=== PATIENT | female | born 1990 | race African-American/Black ===

== ENCOUNTER → 2020-11-25 | Outpatient (CLI) | payer OTHER | END | disposition home or self-care (01) | LOC: LAB 12:16 | PROVIDERS: ATTEND Obstetrics & Gynecology | DX: N91.2 Amenorrhea, unspecified (principal) ==

== ENCOUNTER → 2021-01-11 | Outpatient (CLI) | payer OTHER ==
[2021-01-11 18:00] LABS: BASO % 0.5 % (0.0-1.0); EOS # 0.2 10*3/uL (0.0-0.4); HEMATOCRIT 38.4 % (37.0-47.0); LYMPH # 2.7 10*3/uL (1.3-4.4); LYMPH % 35.4 % (27.0-41.0); MEAN CELL VOLUME 93.2 fl (81.0-99.0); MEAN CORPUSCULAR HGB 29.4 pg (27.0-31.0); MEAN CORPUSCULAR HGB CONC 31.5 g/dl (33.0-37.0); MEAN PLATELET VOLUME 9.1 fl (9.6-12.3); MONO # 0.6 10*3/uL (0.1-1.0); MONO % 7.3 % (3.0-9.0); NEUT % 53.4 % (47.0-73.0); PLATELET COUNT AUTOMATED 286 10*3/uL (130-400); RED BLOOD COUNT 4.12 10*6/uL (4.10-5.10); RED CELL DISTRI WIDTH 14.6 % (0-14.5); WHITE BLOOD COUNT 7.6 10*3/uL (4.8-10.8)
[2021-01-11 18:26] LABS: IRON 57 ug/dL (50-170); TOTAL IRON BINDING CAPACITY 391 ug/dl (250-450)
[2021-01-11 18:51] LABS: FERRITIN 32.7 ng/mL (10.0-291.0)
[2021-01-12 05:06] LABS: HEPATITIS B SURFACE AG Negative (Negative)
[2021-01-13 16:08] LABS: HCV RT-PCR RFX HCV Not Detected IU/mL (.)
== END | disposition home or self-care (01) ==
LOC: LAB 17:29
PROVIDERS: Nurse Practitioner Family; ATTEND Advanced Practice Midwife
DX: Z11.51 Encounter for screening for human papillomavirus (HPV) (principal); Z12.4 Encounter for screening for malignant neoplasm of cervix; D64.9 Anemia, unspecified

== ENCOUNTER → 2021-02-22 | Outpatient (CLI) | payer OTHER | END | disposition home or self-care (01) | LOC: US 16:47 | PROVIDERS: ATTEND Advanced Practice Midwife | DX: Z34.02 Encounter for supervision of normal first pregnancy, second trimester (principal); Z3A.19 19 weeks gestation of pregnancy ==

== ENCOUNTER → 2021-04-30 | Outpatient (CLI) | payer OTHER | END | disposition home or self-care (01) | LOC: LAB 09:49 | PROVIDERS: ATTEND Obstetrics & Gynecology | DX: Z36.9 Encounter for antenatal screening, unspecified (principal) ==

== ENCOUNTER → 2021-05-14 | Outpatient (CLI) | payer OTHER ==
[2021-05-14 09:02] LABS: BASO % 0.5 % (0.0-1.0); EOS # 0.2 10*3/uL (0.0-0.4); EOS % 2.5 % (1.0-4.0); HEMATOCRIT 37.2 % (37.0-47.0); LYMPH # 2.1 10*3/uL (1.3-4.4); LYMPH % 34.9 % (27.0-41.0); MEAN CELL VOLUME 91.4 fl (81.0-99.0); MEAN CORPUSCULAR HGB 28.7 pg (27.0-31.0); MEAN CORPUSCULAR HGB CONC 31.5 g/dl (33.0-37.0); MEAN PLATELET VOLUME 9.7 fl (9.6-12.3); MONO # 0.5 10*3/uL (0.1-1.0); MONO % 8.7 % (3.0-9.0); NEUT # 3.2 10*3/uL (2.3-7.9); NEUT % 53.1 % (47.0-73.0); PLATELET COUNT AUTOMATED 297 10*3/uL (130-400); RED BLOOD COUNT 4.07 10*6/uL (4.10-5.10); RED CELL DISTRI WIDTH 14.6 % (0-14.5); WHITE BLOOD COUNT 6.1 10*3/uL (4.8-10.8)
== END | disposition home or self-care (01) ==
LOC: LAB 08:35
PROVIDERS: ATTEND Obstetrics & Gynecology
DX: Z34.83 Encounter for supervision of other normal pregnancy, third trimester (principal); Z3A.29 29 weeks gestation of pregnancy

== ENCOUNTER → 2021-06-30 | Outpatient (CLI) | payer OTHER ==
[2021-06-30 18:51] LABS: BASO % 0.3 % (0.0-1.0); EOS # 0.2 10*3/uL (0.0-0.4); EOS % 1.9 % (1.0-4.0); HEMATOCRIT 37.3 % (37.0-47.0); LYMPH # 2.5 10*3/uL (1.3-4.4); LYMPH % 31.4 % (27.0-41.0); MEAN CELL VOLUME 88.4 fl (81.0-99.0); MEAN CORPUSCULAR HGB 27.7 pg (27.0-31.0); MEAN CORPUSCULAR HGB CONC 31.4 g/dl (33.0-37.0); MEAN PLATELET VOLUME 9.8 fl (9.6-12.3); MONO % 11.9 % (3.0-9.0); NEUT # 4.3 10*3/uL (2.3-7.9); NEUT % 54.1 % (47.0-73.0); PLATELET COUNT AUTOMATED 280 10*3/uL (130-400); RED BLOOD COUNT 4.22 10*6/uL (4.10-5.10); RED CELL DISTRI WIDTH 16.2 % (0-14.5)
[2021-06-30 19:16] LABS: BUN 8 mg/dl (7-24); CREATININE 0.54 mg/dL (0.55-1.02); SGOT/AST 17 IU/L (3-35); SGPT/ALT 20 U/L (12-78)
== END | disposition home or self-care (01) ==
LOC: LAB 18:19
PROVIDERS: ATTEND Obstetrics & Gynecology
DX: Z34.03 Encounter for supervision of normal first pregnancy, third trimester (principal); Z3A.37 37 weeks gestation of pregnancy

== ENCOUNTER 2021-07-21 07:35 | Emergency (ER) | payer OTHER ==
[~2021-07-21] VITALS: Wt 70.3 kg
[2021-07-21] MEDS ORDERED: NAPROXEN250 MG PO (08:19)
[2021-07-21] MEDS ORDERED: HYDROCODONE-AC1 EAC1 PO ×2 (08:19→08:22)
[2021-07-21] MEDS ORDERED: TYLENOL325 M1 PO (08:19)
[2021-07-21 08:51] LABS: BILIRUBIN Negative (Negative); BLOOD 3+ (Negative); CLARITY Clear (Clear); COLOR Yellow (Yellow); GLUCOSE Negative (Negative); KETONE Negative (Negative); LEUKO ESTERASE 3+ (Negative); NITRITE Negative (Negative); PH 6.5 (4.5-8.0); SPECIFIC GRAVITY 1.015 (1.001-1.030); UROBILINOGEN 0.2 E.U./dl (0.0-1.0)
[2021-07-21 09:09] LABS: RBC TNTC rbc/hpf (0-2)
[2021-07-21 09:10] LABS: BACTERIA 2+; WBC 21-30 wbc/hpf (0-5)
== END 2021-07-21 08:29 | disposition home or self-care (01) ==
LOC: ED 07:35
PROVIDERS: Emergency Medicine
DX: O90.89 Other complications of the puerperium, not elsewhere classified (principal); G89.18 Other acute postprocedural pain

== ENCOUNTER 2021-07-30 07:08 | Emergency (ER) | payer OTHER ==
[~2021-07-30] VITALS: Ht 157.4 cm; Wt 66.2 kg
[~2021-07-30 07:08] MED LIST: HYDROCODONE-AC1 EAC1 PO; NAPROXEN250 MG PO; TYLENOL325 M1 PO
[2021-07-30] MEDS ORDERED: PRENATAL ONE D1 EACH PO (07:26)
[2021-07-30 07:56] LABS: BASO # 0.1 10*3/uL (0.0-0.1); BASO % 1.2 % (0.0-1.0); EOS # 0.3 10*3/uL (0.0-0.4); EOS % 4.5 % (1.0-4.0); HEMATOCRIT 40.9 % (37.0-47.0); LYMPH # 2.6 10*3/uL (1.3-4.4); LYMPH % 42.8 % (27.0-41.0); MEAN CELL VOLUME 89.1 fl (81.0-99.0); MEAN CORPUSCULAR HGB 27.5 pg (27.0-31.0); MEAN CORPUSCULAR HGB CONC 30.8 g/dl (33.0-37.0); MEAN PLATELET VOLUME 10.4 fl (9.6-12.3); MONO # 0.4 10*3/uL (0.1-1.0); MONO % 6.4 % (3.0-9.0); NEUT # 2.7 10*3/uL (2.3-7.9); NEUT % 44.9 % (47.0-73.0); PLATELET COUNT AUTOMATED 414 10*3/uL (130-400); RED BLOOD COUNT 4.59 10*6/uL (4.10-5.10); RED CELL DISTRI WIDTH 15.9 % (0-14.5)
[2021-07-30 08:16] LABS: BILIRUBIN Negative (Negative); BLOOD 2+ (Negative); CLARITY Clear (Clear); COLOR Yellow (Yellow); GLUCOSE Negative (Negative); KETONE Negative (Negative); LEUKO ESTERASE 1+ (Negative); NITRITE Negative (Negative); SPECIFIC GRAVITY 1.015 (1.001-1.030); UROBILINOGEN 0.2 E.U./dl (0.0-1.0)
[2021-07-30 08:24] LABS: BACTERIA 1+
[2021-07-30 08:27] LABS: BUN 16 mg/dl (7-24); CHLORIDE 108 mmol/L (98-107); POTASSIUM 4.2 mmol/L (3.5-5.1); SGOT/AST 27 IU/L (3-35); SGPT/ALT 21 U/L (12-78); SODIUM 137 mmol/L (136-145); TOTAL PROTEIN 8.7 gm/dL (6.4-8.2)
[2021-07-30 08:29] LABS: ALKALINE PHOSPHATASE 77 U/L (45-117)
[2021-07-30] MEDS ORDERED: TYLENOL325 M1 PO (09:18)
[2021-07-30] MEDS ORDERED: NAPROXEN250 MG PO (09:18)
== END 2021-07-30 11:20 | disposition home or self-care (01) ==
LOC: ED 07:08
PROVIDERS: Emergency Medicine
DX: O90.89 Other complications of the puerperium, not elsewhere classified (principal)